=== PATIENT | female | born 1975 | race Caucasian/White ===

== ENCOUNTER → 2016-07-06 | Outpatient (CLI) | payer OTHER ==
--- NOTE | 2016-07-06 15:46 | XR ---
EXAMINATION TYPE: 3 views right hand. 3 views lumbar spine. 4 views sacrum and coccyx DATE OF EXAM: 07/06/2016 3:37 PM COMPARISON: NONE HISTORY: 41-year-old female with fall yesterday landing on her back and hitting her right hand. Prior lumbar fusion. Back pain and injury to the tip of the fifth finger. FINDINGS: Right hand: No acute fracture, subluxation, or dislocation. Particular attention to the tip of the fifth finger. Lumbar spine: Postsurgical changes of L4-S1 posterior and interbody fusion with corresponding laminectomies. There is moderate to severe degenerative disc disease at L2-L3 with grade 1, nearly grade 2 retrolisthesis at L2-L3 and grade 1 retrolisthesis above the fusion at L3-L4. There is degenerated levoconvex curvat ure of the lumbar spine. Vertebral body heights are preserved. Orthopedic hardware appears uncomplica arpita. Sacrum coccyx: SI joints appear symmetric and intact. Arcuate lines of the sacrum are smooth and continuous. No angu lated or displaced sacrococcygeal fracture on the lateral view. COMBINED IMPRESSION: 1. Right hand: No acute osseous abnormality seen. 2. Lumbar spine: Degenerated levoconvex curvature. Uncomplicated appearance to the L4-S1 posterior an d interbody fusion with laminectomies. Moderate to severe degenerative disc disease at L2-L3 with gra de 1, nearly grade 2 anterolisthesis here and additional grade 1 retrolisthesis above the fusion at L 3-L4. No vertebral compression collapse. 3. Sacrum and coccyx: No displaced or angulated sacrococcygeal fracture seen.
== END ==
LOC: RADXRMAIN 15:04
PROVIDERS: ATTEND Emergency Medicine
DX: S60.221A Contusion of right hand, initial encounter (principal); S30.0XXA Contusion of lower back and pelvis, initial encounter; S61.216A Laceration without foreign body of right little finger without damage to nail, initial encounter
CPT/HCPCS: 72100; 72220

== ENCOUNTER 2016-07-07 17:54 | Emergency (ER) | payer OTHER ==
[2016-07-07 18:29] VITALS: RESP 18
[2016-07-07] MEDS ORDERED: traMADol 50 MG TAB PO STA (19:09)
[2016-07-07] MEDS ORDERED: ORPHENADRINE 30 MG/ML 2 ML VIAL IVP STA (19:09)
[2016-07-07 19:46] LABS: Basophils # (A) 0.1 k/uL (0-0.2); Basophils % (A) 1 %; CH 31.9; CHCM 34.3; Eosinophils # (A) 0.2 k/uL (0-0.7); Eosinophils % (A) 2 %; HCT 36.1 % (34.0-46.0); HDW 2.62; HGB 12.2 gm/dL (11.4-16.0); Luc # (Auto) 0.41; Luc % (Auto) 4; Lymphocytes # (A) 3.1 k/uL (1.0-4.8); Lymphocytes % (A) 27 %; MCH 31.7 pg (25.0-35.0); MCHC 33.8 g/dL (31.0-37.0); MCV 93.6 fL (80.0-100.0); Mean Platelet Volume 7.9; Monocytes # (A) 0.6 k/uL (0-1.0); Monocytes % (A) 5 %; Neutrophils # (A) 7.4 k/uL (1.3-7.7); Neutrophils % (A) 62 %; RBC 3.85 m/uL (3.80-5.40); RDW 13.7 % (11.5-15.5); WBC 11.8 k/uL (3.8-10.6); WBC (Perox) 12.13
--- NOTE | 2016-07-07 19:46 | ED ---
Back Pain HPI - General Chief Complaint: Back Pain/Injury Stated Complaint: abnormal CT Time Seen by Provider: 07/07/16 18:56 Source: patient, RN notes reviewed, old records reviewed Limitations: no limitations - History of Present Illness Initial Comments: Patient is a 41-year-old female chief complaint of lower back pain after falling on Monday. She was seen by [facility] and had a CAT scan of her lower back today. They reported that she does have some sclerosis of the lower spine likely and a stress nature but can't rule out infectious disorder. Addition financial administrative assistant at the eye chest stated that she needed to come to be reevaluated to make sure that she does not have infection. Patient denies any other new pain. She reports the pain is positional. She states that she's been taking naproxen and a lidocaine patch over her back over does not help with the pain. Denies any fever or chills, nausea or vomiting or abdominal pain. Denies any dysuria or hematuria or vaginal discharge. Patient states that he has no history of IV drug use. Denies saddle anesthesias. Patient denies any recent fever, chills, shortness of breath, chest pain, abdominal pain, nausea vomiting , numbness or tingling, dysuria or hematuria, constipation or diarrhea, headaches or visual changes, or any other current symptoms - Related Data Home Medications Medication Instructions Recorded Confirmed Gabapentin [Neurontin] 300 mg PO TID 07/07/16 07/07/16 HYDROcodone/APAP 7.5-325MG [[place] 1 tab PO BID PRN 07/07/16 07/07/16 7.5-325] Lisdexamfetamine Dimesylate 50 mg PO QAM 07/07/16 07/07/16 [Vyvanse] QUEtiapine [SEROquel] 400 mg PO HS 07/07/16 07/07/16 buPROPion HCL [Wellbutrin SR] 100 mg PO DAILY 07/07/16 07/07/16 buPROPion SR [Wellbutrin Sr] 300 mg PO DAILY 07/07/16 07/07/16 Previous Rx's Medication Instructions Recorded Cyclobenzaprine [Flexeril] 10 mg PO TID #15 tab 07/07/16 HYDROcodone/APAP 5-325MG [[place] 5] 1 each PO Q6HR PRN #12 tab 07/07/16 Nitrofurantoin Monohyd/M-Cryst 100 mg PO Q12HR #14 cap 07/07/16 [Macrobid] Allergies Allergy/AdvReac Type Severity Reaction Status Date / Time amoxicillin Allergy Swelling Verified 07/07/16 18:57 carisoprodol [From Soma] Allergy Swelling Verified 07/07/16 18:57 venlafaxine [From Effexor] Allergy Swelling Verified 07/07/16 18:57 Review of Systems ROS Statement: Those systems with pertinent positive or pertinent negative responses have been documented in the HPI. ROS Other: All systems not noted in ROS Statement are negative. Past Medical History Past Medical History: Hyperlipidemia Additional Past Medical History / Comment(s): chronic back pain History of Any Multi-Drug Resistant Organisms: None Reported Additional Past Surgical History / Comment(s): spinal fusion 2006 Past Psychological History: Depression Smoking Status: Former smoker Past Alcohol Use History: None Reported Past Drug Use History: None Reported General Exam - General Exam Comments Initial Comments: Pleasant 41-year-old female. No distress. Limitations: no limitations General appearance: alert, in no apparent distress Head exam: Present: atraumatic, normocephalic, normal inspection Eye exam: Present: normal appearance, PERRL, EOMI. Absent: scleral icterus, conjunctival injection, periorbital swelling ENT exam: Present: normal exam, mucous membranes moist Neck exam: Present: normal inspection. Absent: tenderness, meningismus, lymphadenopathy Respiratory exam: Present: normal lung sounds bilaterally. Absent: respiratory distress, wheezes, rales, rhonchi, stridor Cardiovascular Exam: Present: regular rate, normal rhythm, normal heart sounds. Absent: systolic murmur, diastolic murmur, rubs, gallop, clicks GI/Abdominal exam: Present: soft, normal bowel sounds. Absent: distended, tenderness, guarding, rebound, rigid Extremities exam: Present: normal inspection, full ROM, normal capillary refill. Absent: tenderness, pedal edema, joint swelling, calf tenderness Back exam: Present: normal inspection, full ROM, tenderness (She has lumbar spinal tenderness.) Neurological exam: Present: alert, oriented X3, CN II-XII intact Psychiatric exam: Present: normal affect, normal mood Skin exam: Present: warm, dry, intact, normal color. Absent: rash Course Vital Signs 07/07/16 18:25 Temperature 98.2 F Pulse Rate 87 Respiratory 18 Rate Blood Pressure 137/86 O2 Sat by Pulse 100 Oximetry Medical Decision Making - Medical Decision Making This is a 41-year-old female chief complaint of lower back pain after a fall. Patient states that she was seen by eye chest and had a CT. They reported they want her to be seen and to follow-up with the emergency department to rule out infection. Patient's lab work obtained. White count is negative. Patient has no fever or chills or signs of infection. Patient's urinalysis does show large white blood cells and large leukocyte Estrace. We will put the patient on Macrobid for UTI. Patient has been advised to follow up back with [facility]. I will write the patient for Ultram for back pain as well as naproxen. Flexeril. Patient understands treatment plan will comply. Return parameters were discussed. - Lab Data Result diagrams: 07/07/16 19:30 07/07/16 19:30 Lab Results 07/07/16 07/07/16 07/07/16 Range/Units 19:30 19:30 19:30 WBC 11.8 H (3.8-10.6) k/uL RBC 3.85 (3.80-5.40) m/uL Hgb 12.2 (11.4-16.0) gm/dL Hct 36.1 (34.0-46.0) % MCV 93.6 (80.0-100.0) fL MCH 31.7 (25.0-35.0) pg MCHC 33.8 (31.0-37.0) g/dL RDW 13.7 (11.5-15.5) % Plt Count 276 (150-450) k/uL Neutrophils % 62 % Lymphocytes % 27 % Monocytes % 5 % Eosinophils % 2 % Basophils % 1 % Neutrophils # 7.4 (1.3-7.7) k/uL Lymphocytes # 3.1 (1.0-4.8) k/uL Monocytes # 0.6 (0-1.0) k/uL Eosinophils # 0.2 (0-0.7) k/uL Basophils # 0.1 (0-0.2) k/uL Sodium 139 (137-145) mmol/L Potassium 4.1 (3.5-5.1) mmol/L Chloride 102 (98-107) mmol/L Carbon Dioxide 25 (22-30) mmol/L Anion Gap 12 mmol/L BUN 13 (7-17) mg/dL Creatinine 0.58 (0.52-1.04) mg/dL Est GFR (MDRD) Af Amer >60 (>60 ml/min/1.73 sqM) Est GFR (MDRD) Non-Af >60 (>60 ml/min/1.73 sqM) Glucose 83 (74-99) mg/dL Calcium 9.4 (8.4-10.2) mg/dL Urine Color Yellow Urine Appearance Cloudy H (Clear) Urine pH 6.0 (5.0-8.0) Ur Specific [place] 1.024 (1.001-1.035) Urine Protein 1+ H (Negative) Urine Glucose (UA) Negative (Negative) Urine Ketones Negative (Negative) Urine Blood Negative (Negative) Urine Nitrite Negative (Negative) Urine Bilirubin Negative (Negative) Urine Urobilinogen <2.0 (<2.0) mg/dL Ur Leukocyte Esterase Large H (Negative) Urine RBC 2 (0-5) /hpf Urine WBC 20 H (0-5) /hpf Ur Squamous Epith Cells 13 H (0-4) /hpf Urine Bacteria Rare H (None) /hpf Urine Mucus Many H (None) /hpf - Radiology Data Radiology results: report reviewed CT of lumbar spine shows spinal stenosis, disc herniation and listhesis described L2/3. Sclerosis is thought to be likely due to stress changes rather than infection. Scoliosis and postop changes. Vertebral bodies show stable height. There is retrolisthesis on the plain film L2/3. So she did this Height loss and vacuum phenomenon. Endplate irregularities likely due to degenerative changes. Uterus is somewhat bulky. There may be underlying fibroid. Evidence of laminectomies at L5. Disposition Clinical Impression: Lower back pain, UTI (urinary tract infection) Disposition: HOME SELF-CARE Condition: Good Instructions: Acute Low Back Pain (ED) Additional Instructions: Patient advised to follow up with [facility] regards to further management of the back pain. Patient can take muscle relaxer and pain medication as needed. Also complete her antibiotic prescription for urinary tract infection. Return to the emergency department if any alarming signs or symptoms occur including loss of bowel or bladder control. Prescriptions: Cyclobenzaprine [Flexeril] 10 mg PO TID #15 tab HYDROcodone/APAP 5-325MG [Ruffin 5] 1 each PO Q6HR PRN #12 tab PRN Reason: Pain Nitrofurantoin Monohyd/M-Cryst [Macrobid] 100 mg PO Q12HR #14 cap Referrals: Nonstaff,Physician [Primary Care Provider] - 1-2 days Carolina Guzman MD [STAFF PHYSICIAN] - 1-2 days Time of Disposition: 20:13
[2016-07-07 19:55] LABS: Appearance,Urine Cloudy (Clear); Bacteria,Urine Rare /hpf; Bilirubin,Urine Negative (Negative); Glucose,Urine (UA) Negative (Negative); Ketones,Urine Negative (Negative); Leukocyte Esterase,Urine Large (Negative); Mucus,Urine Many /hpf; Nitrite,Urine Negative (Negative); Particle Count 17090; Protein,Urine 1+ (Negative); RBC,Urine 2 /hpf (0-5); Specific Gravity,Urine 1.024 (1.001-1.035); Squamous Epithelial Cell,Urine 13 /hpf (0-4); UA Billing (MACRO vs. MICRO) MICRO; Urobilinogen,Urine <2.0 mg/dL (<2.0); WBC,Urine 20 /hpf (0-5)
[2016-07-07 20:05] LABS: Anion Gap 12 mmol/L; Blood Urea Nitrogen 13 mg/dL (7-17); Calcium 9.4 mg/dL (8.4-10.2); Carbon Dioxide 25 mmol/L (22-30); Chloride 102 mmol/L (98-107); Glucose 83 mg/dL (74-99); Non-African American GFR(MDRD) >60 (>60 ml/min/1.73 sqM); Potassium 4.1 mmol/L (3.5-5.1); Sodium 139 mmol/L (137-145)
[2016-07-07 20:32] VITALS: BP 119/63; PULSE 78; TEMP 98.7
== END 2016-07-07 20:31 | disposition home or self-care (01) ==
LOC: EC 17:54
DX: N39.0 Urinary tract infection, site not specified (principal); M48.06 Spinal stenosis, lumbar region; M51.26 Other intervertebral disc displacement, lumbar region; M43.16 Spondylolisthesis, lumbar region; M41.86 Other forms of scoliosis, lumbar region; F32.9 Major depressive disorder, single episode, unspecified; Z87.891 Personal history of nicotine dependence; Z79.899 Other long term (current) drug therapy; Z88.0 Allergy status to penicillin; Z88.8 Allergy status to other drugs, medicaments and biological substances; Z98.1 Arthrodesis status
CPT/HCPCS: 36415; 80048; 85025; 81001; 99284; 96374; J2360

== ENCOUNTER → 2016-07-07 | Outpatient (CLI) | payer OTHER ==
--- NOTE | 2016-07-07 17:15 | CT ---
EXAMINATION TYPE: CT lumbar spine wo con DATE OF EXAM: 07/07/2016 4:56 PM COMPARISON: Plain film 06 Jul 2016 HISTORY: Pain post fall on 07/05/16 CT DLP: 1312.6 mGycm Automated exposure control for dose reduction was used. An unenhanced CT of the lumbar spine was performed. Bone and soft tissue window settings are submitt ed as well as coronal and sagittal reconstructions. FINDINGS: Lumbar vertebral bodies show stable height, there is retrolisthesis as noted on plain film at L2-3, t here is associated loss of disc height and vacuum phenomenon, endplate sclerosis. Endplate irregulari ty likely is due to degenerative change, difficult to exclude infection. Postop changes are noted sta tus post posterior fusion at L4-S1. There is a scoliotic curvature to the spine. Laminectomies are pr esent at L5. Uterus is somewhat bulky, there may be underlying fibroid L1-L2: Broad-based posterior disc bulge causes mild anterior mass effect on the thecal sac. No signif icant foraminal encroachment, only mild central stenosis. L2-L3: There is a posterior disc herniation, vacuum phenomenon extends into the central canal, modera te to severe central stenosis is suspected. Listhesis contributes to cause foraminal encroachment wit h the scoliosis greater on the right than on the left. L3-L4: Central canal stenosis is moderate, posterior broad-based disc bulge causes anterior mass effe ct on the thecal sac, facet arthropathy encroaches on the lateral recesses. Some mild bilateral griffin inal encroachment suspected. L4-L5: Intervertebral spacing material is present. There is loss of disc height. L5-S1: Intervertebral spacing material is present. There is loss of disc height. IMPRESSION: Spinal stenosis, disc herniation and listhesis as described at L2-3. Sclerosis thought likely to be d ue to stress changes rather than infection, correlate. Scoliosis, postop changes and additional findi ngs above.
--- NOTE | 2016-07-07 17:31 | XR ---
AP pelvis HISTORY: Trauma and pain Single frontal view of the pelvis No comparisons Postop changes are noted at the lumbosacral junction. Bone mineralization is maintained. Alignment an d joint spaces are normal. IMPRESSION: No fracture or dislocation
== END | disposition home or self-care (01) ==
LOC: RADCTMAIN 16:27
PROVIDERS: ATTEND Emergency Medicine
DX: S30.0XXD Contusion of lower back and pelvis, subsequent encounter (principal); M48.06 Spinal stenosis, lumbar region; M51.26 Other intervertebral disc displacement, lumbar region; M43.16 Spondylolisthesis, lumbar region; M41.9 Scoliosis, unspecified; Z98.890 Other specified postprocedural states
CPT/HCPCS: 72131; 72170

== ENCOUNTER 2017-05-31 14:47 | Observation (INO) | payer OTHER ==
[2017-05-31] MEDS ORDERED: SODIUM CHLORIDE 0.9% 1,000 ML IV STA (15:05)
--- NOTE | 2017-05-31 15:11 | ED ---
General Adult HPI - General Chief complaint: Overdose Stated complaint: Overdose Time Seen by Provider: 05/31/17 15:00 Source: police, EMS, RN notes reviewed Mode of arrival: EMS Limitations: no limitations - History of Present Illness Initial comments: This is a 42-year-old female presents emergency department stating that she doesn't want to live anymore. Patient states that she took 25 Zanaflex because she's sick of living with pain. Patient denies any other medications he sent denies any illegal drugs patient denies any alcohol. Patient denies a headache patient denies any numbness or weakness. Patient states she does feel extremely tired but aside from that has no complaint. Patient denies chest pain palpitations difficulty breathing or shortness of breath per patient denies abdominal pain patient denies nausea vomiting diarrhea. Patient denies any recent fever chills or cough. - Related Data Home Medications Medication Instructions Recorded Confirmed QUEtiapine [SEROquel] 600 mg PO HS 07/07/16 05/31/17 buPROPion HCL [Wellbutrin SR] 100 mg PO DAILY 07/07/16 05/31/17 buPROPion SR [Wellbutrin Sr] 150 mg PO BID 07/07/16 05/31/17 HYDROcodone/APAP 5-325MG [[place] 5] 1 tab PO Q8H PRN 05/31/17 05/31/17 Lisdexamfetamine Dimesylate 70 mg PO QAM 05/31/17 05/31/17 [Vyvanse] Pantoprazole [Protonix] 40 mg PO BID 05/31/17 05/31/17 Promethazine [Phenergan] 25 mg PO Q12H 05/31/17 05/31/17 tiZANidine [Zanaflex] 4 mg PO Q8HR PRN 05/31/17 05/31/17 Allergies Allergy/AdvReac Type Severity Reaction Status Date / Time amoxicillin Allergy Swelling Verified 07/07/16 18:57 carisoprodol [From Soma] Allergy Swelling Verified 07/07/16 18:57 venlafaxine [From Effexor] Allergy Swelling Verified 07/07/16 18:57 Review of Systems ROS Statement: Those systems with pertinent positive or pertinent negative responses have been documented in the HPI. ROS Other: All systems not noted in ROS Statement are negative. Past Medical History Past Medical History: Hyperlipidemia Additional Past Medical History / Comment(s): chronic back pain History of Any Multi-Drug Resistant Organisms: None Reported Additional Past Surgical History / Comment(s): spinal fusion 2006 Past Psychological History: Depression Smoking Status: Former smoker Past Alcohol Use History: None Reported Past Drug Use History: None Reported General Exam - General Exam Comments Initial Comments: GENERAL: Patient is well-developed and well-nourished. Patient is nontoxic and well- hydrated and is in no acute distress. Patient is lethargic but arousable and able to answer questions accurately ENT: Neck is soft and supple. No significant lymphadenopathy is noted. Oropharynx is clear. Moist mucous membranes. Neck has full range of motion without eliciting any pain. EYES: The sclera were anicteric and conjunctiva were pink and moist. Extraocular movements were intact and pupils were equal round and reactive to light. Eyelids were unremarkable. PULMONARY: Unlabored respirations. Good breath sounds bilaterally. No audible rales rhonchi or wheezing was noted. CARDIOVASCULAR: There is a regular rate and rhythm without any murmurs gallops or rubs. ABDOMEN: Soft and nontender with normal bowel sounds. SKIN: Skin is clear with no lesions or rashes and otherwise unremarkable. NEUROLOGIC: Patient is alert and oriented x3. Cranial nerves II through XII are grossly intact. Motor and sensory are also intact. Normal speech, volume and content. Symmetrical smile. MUSCULOSKELETAL: Normal extremities with adequate strength and full range of motion. LYMPHATICS: No significant lymphadenopathy is noted PSYCHIATRIC: Patient states she is suicidal Limitations: no limitations Course Vital Signs 05/31/17 05/31/17 15:00 15:50 Temperature 97.6 F Pulse Rate 40 L 40 L Respiratory 16 16 Rate Blood Pressure 130/71 O2 Sat by Pulse 99 Oximetry Medical Decision Making - Medical Decision Making EKG shows a marked sinus bradycardia at 43 bpm NC interval is 132 QRS is 86 QT interval 512 QTC is 432. Patient's EKG shows no ST segment elevation or depression no T-wave abnormalities noted. I spoke with Dr. Patel he agreed to admit the patient admitted the patient wrote admitting orders. - Lab Data Result diagrams: 05/31/17 15:00 05/31/17 15:00 Lab Results 05/31/17 05/31/17 05/31/17 Range/Units 15:00 15:00 15:00 WBC 7.0 (3.8-10.6) k/uL RBC 3.73 L (3.80-5.40) m/uL Hgb 11.3 L (11.4-16.0) gm/dL Hct 33.7 L (34.0-46.0) % MCV 90.4 (80.0-100.0) fL MCH 30.3 (25.0-35.0) pg MCHC 33.5 (31.0-37.0) g/dL RDW 13.5 (11.5-15.5) % Plt Count 339 (150-450) k/uL Neutrophils % 70 % Lymphocytes % 21 % Monocytes % 7 % Eosinophils % 0 % Basophils % 0 % Neutrophils # 4.9 (1.3-7.7) k/uL Lymphocytes # 1.5 (1.0-4.8) k/uL Monocytes # 0.5 (0-1.0) k/uL Eosinophils # 0.0 (0-0.7) k/uL Basophils # 0.0 (0-0.2) k/uL Sodium 135 L (137-145) mmol/L Potassium 4.1 (3.5-5.1) mmol/L Chloride 101 (98-107) mmol/L Carbon Dioxide 23 (22-30) mmol/L Anion Gap 11 mmol/L BUN 14 (7-17) mg/dL Creatinine 0.46 L (0.52-1.04) mg/dL Est GFR (CKD-EPI)AfAm >90 (>60 ml/min/1.73 sqM) Est GFR (CKD-EPI)NonAf >90 (>60 ml/min/1.73 sqM) Glucose 94 (74-99) mg/dL Calcium 9.0 (8.4-10.2) mg/dL Magnesium (1.6-2.3) mg/dL Total Bilirubin 0.3 (0.2-1.3) mg/dL AST 90 H (14-36) U/L ALT 99 H (9-52) U/L Alkaline Phosphatase 89 (38-126) U/L Troponin I (0.000-0.034) ng/mL Total Protein 6.7 (6.3-8.2) g/dL Albumin 3.6 (3.5-5.0) g/dL Urine HCG, Qual (Not Detectd) Salicylates <1.0 mg/dL Urine Opiates Screen Not Detected (NotDetected) Ur Oxycodone Screen Not Detected (NotDetected) Urine Methadone Screen Not Detected (NotDetected) Ur Propoxyphene Screen Not Detected (NotDetected) Acetaminophen <10.0 ug/mL Ur Barbiturates Screen Detected H (NotDetected) U Tricyclic Antidepress Not Detected (NotDetected) Ur Phencyclidine Scrn Not Detected (NotDetected) Ur Amphetamines Screen Detected H (NotDetected) U Methamphetamines Scrn Detected H (NotDetected) U Benzodiazepines Scrn Not Detected (NotDetected) Urine Cocaine Screen Not Detected (NotDetected) U Marijuana (THC) Screen Not Detected (NotDetected) Serum Alcohol <10 mg/dL 05/31/17 05/31/17 05/31/17 Range/Units 15:00 15:00 15:00 WBC (3.8-10.6) k/uL RBC (3.80-5.40) m/uL Hgb (11.4-16.0) gm/dL Hct (34.0-46.0) % MCV (80.0-100.0) fL MCH (25.0-35.0) pg MCHC (31.0-37.0) g/dL RDW (11.5-15.5) % Plt Count (150-450) k/uL Neutrophils % % Lymphocytes % % Monocytes % % Eosinophils % % Basophils % % Neutrophils # (1.3-7.7) k/uL Lymphocytes # (1.0-4.8) k/uL Monocytes # (0-1.0) k/uL Eosinophils # (0-0.7) k/uL Basophils # (0-0.2) k/uL Sodium (137-145) mmol/L Potassium (3.5-5.1) mmol/L Chloride (98-107) mmol/L Carbon Dioxide (22-30) mmol/L Anion Gap mmol/L BUN (7-17) mg/dL Creatinine (0.52-1.04) mg/dL Est GFR (CKD-EPI)AfAm (>60 ml/min/1.73 sqM) Est GFR (CKD-EPI)NonAf (>60 ml/min/1.73 sqM) Glucose (74-99) mg/dL Calcium (8.4-10.2) mg/dL Magnesium 1.8 (1.6-2.3) mg/dL Total Bilirubin (0.2-1.3) mg/dL AST (14-36) U/L ALT (9-52) U/L Alkaline Phosphatase (38-126) U/L Troponin I <0.012 (0.000-0.034) ng/mL Total Protein (6.3-8.2) g/dL Albumin (3.5-5.0) g/dL Urine HCG, Qual Not Detected (Not Detectd) Salicylates mg/dL Urine Opiates Screen (NotDetected) Ur Oxycodone Screen (NotDetected) Urine Methadone Screen (NotDetected) Ur Propoxyphene Screen (NotDetected) Acetaminophen ug/mL Ur Barbiturates Screen (NotDetected) U Tricyclic Antidepress (NotDetected) Ur Phencyclidine Scrn (NotDetected) Ur Amphetamines Screen (NotDetected) U Methamphetamines Scrn (NotDetected) U Benzodiazepines Scrn (NotDetected) Urine Cocaine Screen (NotDetected) U Marijuana (THC) Screen (NotDetected) Serum Alcohol mg/dL Disposition Clinical Impression: Overdose, Bradycardia, Methamphetamine abuse Disposition: ADMITTED IP TO THIS [facility] Referrals: Nonstaff,Physician [Primary Care Provider] - 1-2 days Time of Disposition: 16:42
[2017-05-31 15:33] LABS: Basophils % (A) 0 %; Eosinophils % (A) 0 %; HCT 33.7 % (34.0-46.0); HGB 11.3 gm/dL (11.4-16.0); Lymphocytes # (A) 1.5 k/uL (1.0-4.8); Lymphocytes % (A) 21 %; MCH 30.3 pg (25.0-35.0); MCHC 33.5 g/dL (31.0-37.0); MCV 90.4 fL (80.0-100.0); Mean Platelet Volume 8.6; Monocytes # (A) 0.5 k/uL (0-1.0); Monocytes % (A) 7 %; Neutrophils # (A) 4.9 k/uL (1.3-7.7); Neutrophils % (A) 70 %; Platelet Count 339 k/uL (150-450); RBC 3.73 m/uL (3.80-5.40); RDW 13.5 % (11.5-15.5)
[2017-05-31 15:45] LABS: ALT 99 U/L (9-52); AST 90 U/L (14-36); Acetaminophen <10.0 ug/mL; Albumin 3.6 g/dL (3.5-5.0); Alcohol <10 mg/dL; Alkaline Phosphatase 89 U/L (38-126); Anion Gap 11 mmol/L; Blood Urea Nitrogen 14 mg/dL (7-17); Carbon Dioxide 23 mmol/L (22-30); Chloride 101 mmol/L (98-107); Glucose 94 mg/dL (74-99); Potassium 4.1 mmol/L (3.5-5.1); Salicylate <1.0 mg/dL; Sodium 135 mmol/L (137-145); Total Bilirubin 0.3 mg/dL (0.2-1.3); Total Protein 6.7 g/dL (6.3-8.2)
[2017-05-31 16:05] LABS: Cocaine Screen,Urine Not Detected (NotDetected); Opiate Screen,Urine Not Detected (NotDetected); Phencyclidine Screen,Urine Not Detected (NotDetected); Urn Cannabinoid Scrn Not Detected (NotDetected)
[2017-05-31 16:06] LABS: Amphetamine Screen,Urine Detected (NotDetected); Barbiturate Screen,Urine Detected (NotDetected); Benzodiazepines Screen,Urine Not Detected (NotDetected); Methadone Screen, Urine Not Detected (NotDetected); Oxycodone Screen, Urine Not Detected (NotDetected); Tricyclic Antidepressant,Urine Not Detected (NotDetected)
[2017-05-31] MEDS ORDERED: MAGNESIUM SULFATE-D5W PMX 1 GM in DEXTROSE/WATER 1 100ML.BAG IVPB ONE (16:38)
[2017-05-31] MEDS ORDERED: SODIUM CHLORIDE 0.9% 1,000 ML IV ONE (16:42)
[2017-05-31 17:12] LABS: ALT 95 U/L (9-52); AST 76 U/L (14-36); Albumin 3.4 g/dL (3.5-5.0); Alkaline Phosphatase 87 U/L (38-126); Anion Gap 9 mmol/L; Blood Urea Nitrogen 12 mg/dL (7-17); Calcium 8.7 mg/dL (8.4-10.2); Carbon Dioxide 23 mmol/L (22-30); Chloride 104 mmol/L (98-107); Glucose 96 mg/dL (74-99); Sodium 136 mmol/L (137-145); Total Bilirubin 0.3 mg/dL (0.2-1.3); Total Protein 6.2 g/dL (6.3-8.2)
[2017-05-31 18:11] VITALS: BMI 29.0
--- NOTE | 2017-05-31 18:12 | P.HPIM ---
History of Present Illness H&P Date: 05/31/17 Chief Complaint: Suicidal ideation overdose The patient is a 42-year-old female with a past medical history of depression, anxiety and chronic pain who presents to the ER after being brought in by EMS for intentional drug overdose. Apparently the patient took 20 -25 tablets of Zanaflex at this morning approximately 1 AM. The patient had been increasingly somnolent but then she reports to calling EMS earlier today. When asked if she was trying to hurt herself the patient on repeating "she does not want to be here". She denied any history of previous suicide attempt. She reports increased stressors including job loss and reports that she is close to losing her apartment. She reports previously being on Wellbutrin and Seroquel and Vyvanse at some point. The patient complaints of severe lower back pain that appears to be chronic she has a history of lumbar spinal infusion and complains of severe midline lumbar back pain and also reports she's been seen several times here in the ER, she reports recently having an EGD at [facility] and apparently has a hiatal hernia. In the ER patient had a UDS that was positive for benzodiazepine and methamphetamine, she was noted to be bradycardic with heart rate in the 40s. Poison control was contacted from the ER Past Medical History Past Medical History: Hyperlipidemia Additional Past Medical History / Comment(s): chronic back pain History of Any Multi-Drug Resistant Organisms: None Reported Additional Past Surgical History / Comment(s): spinal fusion 2005 Past Psychological History: Depression Smoking Status: Former smoker Past Alcohol Use History: None Reported Past Drug Use History: None Reported Medications and Allergies Home Medications Medication Instructions Recorded Confirmed Type QUEtiapine [SEROquel] 600 mg PO HS 07/07/16 05/31/17 History buPROPion HCL [Wellbutrin SR] 100 mg PO DAILY 07/07/16 05/31/17 History buPROPion SR [Wellbutrin Sr] 150 mg PO BID 07/07/16 05/31/17 History HYDROcodone/APAP 5-325MG [[place] 5] 1 tab PO Q8H PRN 05/31/17 05/31/17 History Lisdexamfetamine Dimesylate 70 mg PO QAM 05/31/17 05/31/17 History [Vyvanse] Pantoprazole [Protonix] 40 mg PO BID 05/31/17 05/31/17 History Promethazine [Phenergan] 25 mg PO Q12H 05/31/17 05/31/17 History tiZANidine [Zanaflex] 4 mg PO Q8HR PRN 05/31/17 05/31/17 History Allergies Allergy/AdvReac Type Severity Reaction Status Date / Time amoxicillin Allergy Swelling Verified 07/07/16 18:57 carisoprodol [From Soma] Allergy Swelling Verified 07/07/16 18:57 venlafaxine [From Effexor] Allergy Swelling Verified 07/07/16 18:57 Physical Exam Vitals: Vital Signs Temp Pulse Resp BP Pulse Ox 05/31/17 17:49 97.6 F 52 L 18 132/78 97 05/31/17 16:59 46 L 20 99 05/31/17 15:50 40 L 16 05/31/17 15:00 97.6 F 40 L 16 130/71 99 Intake and Output 05/31/17 05/31/17 05/31/17 06:59 14:59 22:59 Other: Weight 79.379 kg Constitutional: No acute distress, conversant, pleasant Eyes: Anicteric sclerae, moist conjunctiva, no lid-lag, PERRLA ENMT: NC/AT,Oropharynx clear, no erythema, exudates Neck:Supple, FROM, no masses, or JVD, No carotid bruits; No thyromegaly Lungs: Clear to auscultation, Clear to percussion, Normal respiratory effort, no accessory muscle use Cardiovascular: Bradycardic with regular rhythm, No murmurs, gallops, or rubs no peripheral edema Abdominal: Soft Nontender, nom distended, no guarding, no rebound or rigidity, Normoactive bowel sounds No hepatomegaly, No splenomegaly, No palpable mass No abdominal wall hernia noted Skin: Normal temperature, tone, texture, turgor, No induration No subcutaneous nodules, No rash, lesions, No ulcers Extremities:No digital cyanosis No clubbing, Pedal pulses intact and symmetrical Radial pulses intact and symmetrical Normal gait and station, No calf tenderness Psychiatric: Alert and oriented to person, place and time, tearful, emotional, anxious, depressed mood, denies homicidal ideations and any hallucinations Neuro: Muscles Strength 5/5 in all 4 extremities, Sensation to light touch grossly present throughout, Cranial nerves II-XII grossly intact. No focal sensory deficits Results CBC & Chem 7: 06/01/17 06:25 06/01/17 06:25 Labs: Abnormal Lab Results - Last 24 Hours (Table) 05/31/17 05/31/17 05/31/17 Range/Units 15:00 15:00 15:00 RBC 3.73 L (3.80-5.40) m/uL Hgb 11.3 L (11.4-16.0) gm/dL Hct 33.7 L (34.0-46.0) % Sodium 135 L (137-145) mmol/L Creatinine 0.46 L (0.52-1.04) mg/dL AST 90 H (14-36) U/L ALT 99 H (9-52) U/L Total Protein (6.3-8.2) g/dL Albumin (3.5-5.0) g/dL Ur Barbiturates Screen Detected H (NotDetected) Ur Amphetamines Screen Detected H (NotDetected) U Methamphetamines Scrn Detected H (NotDetected) 05/31/17 Range/Units 16:50 RBC (3.80-5.40) m/uL Hgb (11.4-16.0) gm/dL Hct (34.0-46.0) % Sodium 136 L (137-145) mmol/L Creatinine 0.41 L (0.52-1.04) mg/dL AST 76 H (14-36) U/L ALT 95 H (9-52) U/L Total Protein 6.2 L (6.3-8.2) g/dL Albumin 3.4 L (3.5-5.0) g/dL Ur Barbiturates Screen (NotDetected) Ur Amphetamines Screen (NotDetected) U Methamphetamines Scrn (NotDetected) Assessment and Plan (1) Intentional drug overdose Current Visit: Yes Status: Acute Code(s): T50.902A - POISONING BY UNSP DRUG/ MEDS/BIOL SUBST, SELF-HARM, INIT SNOMED Code(s): 70983709 (2) Depression Current Visit: Yes Status: Acute Code(s): F32.9 - MAJOR DEPRESSIVE DISORDER , SINGLE EPISODE, UNSPECIFIED SNOMED Code(s): 04596431 (3) Suicidal ideation Current Visit: Yes Status: Acute Code(s): R45.851 - SUICIDAL IDEATIONS SNOMED Code(s): 9679295 (4) Bradycardia Current Visit: Yes Status: Acute Code(s): R00.1 - BRADYCARDIA, UNSPECIFIED SNOMED Code(s): 58502281 (5) Chronic pain Current Visit: Yes Status: Acute Code(s): G89.29 - OTHER CHRONIC PAIN SNOMED Code(s): 87903178 Plan: The patient is placed on observation for intentional drug overdose anticipated less than 2 midnight stay. Poison control was contacted and recommended maintaining serum potassium level greater than 4 and serum magnesium level greater than 2. We'll continue the patient on a one-to-one project safety manager on 6 selective telemetry unit. continue with IV fluiDS, initial EKG shows a marked sinus bradycardia at 43 bpm OK interval is 132 QRS is 86 QT interval 512 QTC is 432. Patient's EKG shows no ST segment elevation or depression no T-wave abnormalities noted. We'll continue monitor her heart rate which seems to be improving now in the low to mid 50s. We'll consult psychiatry for further recommendations patient will likely need inpatient psychiatric treatment. We' ll continue to follow her clinical course
[2017-05-31] MEDS: PROMETHAZINE 25 MG TAB PO SCH (20:41)
[2017-05-31] MEDS: PANTOPRAZOLE 40 MG TABLET PO SCH (20:41)
[2017-05-31] MEDS: buPROPion SR 150 MG TABLET.ER PO SCH (20:45)
[2017-05-31] MEDS ORDERED: QUEtiapine 200 MG TAB PO SCH (21:00)
[2017-05-31 22:59] LABS: ALT 79 U/L (9-52); AST 53 U/L (14-36); Albumin 3.1 g/dL (3.5-5.0); Alkaline Phosphatase 80 U/L (38-126); Anion Gap 10 mmol/L; Blood Urea Nitrogen 8 mg/dL (7-17); Calcium 8.9 mg/dL (8.4-10.2); Carbon Dioxide 26 mmol/L (22-30); Chloride 108 mmol/L (98-107); Glucose 110 mg/dL (74-99); Magnesium 2.2 mg/dL (1.6-2.3); Potassium 3.3 mmol/L (3.5-5.1); Sodium 144 mmol/L (137-145); Total Bilirubin 0.2 mg/dL (0.2-1.3); Total Protein 5.9 g/dL (6.3-8.2)
[2017-05-31] MEDS ORDERED: Potassium Replacement Protocol 1 EACH MISC MISCELLANE PRN ×2 (23:03→23:59)
[2017-05-31] MEDS ORDERED: POTASSIUM CHLORIDE 10 MEQ in WATER FOR INJECTION 1 100ML.BAG IVPB SCH (23:15)
[2017-06-01] MEDS: POTASSIUM CHLORIDE ER 20 MEQ TAB.ER PO SCH ×2 (00:16→00:58)
[2017-06-01] MEDS: PANTOPRAZOLE 40 MG TABLET PO SCH ×2 (06:34→17:12)
[2017-06-01 06:44] LABS: Basophils % (A) 0 %; Eosinophils # (A) 0.1 k/uL (0-0.7); Eosinophils % (A) 1 %; HCT 34.2 % (34.0-46.0); HGB 11.7 gm/dL (11.4-16.0); Lymphocytes # (A) 1.5 k/uL (1.0-4.8); Lymphocytes % (A) 20 %; MCH 30.7 pg (25.0-35.0); MCHC 34.4 g/dL (31.0-37.0); MCV 89.4 fL (80.0-100.0); Mean Platelet Volume 7.6; Monocytes # (A) 0.5 k/uL (0-1.0); Monocytes % (A) 6 %; Neutrophils # (A) 5.5 k/uL (1.3-7.7); Neutrophils % (A) 71 %; Platelet Count 292 k/uL (150-450); RBC 3.82 m/uL (3.80-5.40); RDW 13.4 % (11.5-15.5); WBC 7.8 k/uL (3.8-10.6)
[2017-06-01 06:54] LABS: Blood Urea Nitrogen 9 mg/dL (7-17); Calcium 8.8 mg/dL (8.4-10.2); Carbon Dioxide 24 mmol/L (22-30); Chloride 109 mmol/L (98-107); Glucose 108 mg/dL (74-99); Potassium 3.9 mmol/L (3.5-5.1)
[2017-06-01 06:57] LABS: Anion Gap 10 mmol/L; Sodium 143 mmol/L (137-145)
[2017-06-01] MEDS ORDERED: Potassium Replacement Protocol 1 EACH MISC MISCELLANE PRN (07:03)
[2017-06-01] MEDS ORDERED: POTASSIUM CHLORIDE ER 20 MEQ TAB.ER PO SCH (08:00)
[2017-06-01] MEDS ORDERED: buPROPion SR 100 MG TABLET.ER PO SCH (09:00)
[2017-06-01] MEDS: PROMETHAZINE 25 MG TAB PO SCH (10:04)
[2017-06-01] MEDS: buPROPion SR 150 MG TABLET.ER PO SCH (10:04)
[2017-06-01] MEDS ORDERED: ACETAMINOPHEN TAB 325 MG TAB PO PRN (10:44)
--- NOTE | 2017-06-01 10:47 | P.PN ---
Subjective Progress Note Date: 06/01/17 Patient not very cooperative with interview today, reports that she wants to " get out of here". Refusing to answer questions but does allow physical examination. Objective - Vital Signs Vital signs: Vital Signs Temp 97.1 F L 06/01/17 08:00 Pulse 98 06/01/17 08:00 Resp 18 06/01/17 08:00 BP 138/66 06/01/17 08:00 Pulse Ox 97 06/01/17 08:00 Intake & Output 05/31/17 06/01/17 06/01/17 18:59 06:59 18:59 Intake Total 1200 120 Balance 1200 120 Weight 79 kg 78 kg Intake: Intake, IV Titration 900 Amount Magnesium Sulfate-D5w Pmx 100 1 gm In Dextrose/Water 1 100ml.bag @ 100 mls/hr IVPB ONCE ONE Rx#: [id number] Sodium Chloride 0.9% 1, 800 000 ml @ 100 mls/hr IV . Q10H ONE Rx#:[id number] Oral 300 120 Other: Voiding Method Toilet # Voids 1 1 # Bowel Movements 0 - Exam Constitutional: No acute distress, conversant, pleasant Eyes: Anicteric sclerae, moist conjunctiva, no lid-lag, PERRLA ENMT: NC/AT,Oropharynx clear, no erythema, exudates Neck:Supple, FROM, no masses, or JVD, No carotid bruits; No thyromegaly Lungs: Clear to auscultation, Clear to percussion, Normal respiratory effort, no accessory muscle use Cardiovascular: Heart regular in rate and rhythm, No murmurs, gallops, or rubs no peripheral edema Abdominal: Soft Nontender, nom distended, no guarding, no rebound or rigidity, Normoactive bowel sounds No hepatomegaly, No splenomegaly, No palpable mass No abdominal wall hernia noted Skin: Normal temperature, tone, texture, turgor, No induration No subcutaneous nodules, No rash, lesions, No ulcers Extremities:No digital cyanosis No clubbing, Pedal pulses intact and symmetrical Radial pulses intact and symmetrical Normal gait and station, No calf tenderness Psychiatric: Alert and oriented to person, place and time, flat affect, withdrawn, uncooperative, depressed mood Neuro: Muscles Strength 5/5 in all 4 extremities, Sensation to light touch grossly present throughout, Cranial nerves II-XII grossly intact. No focal sensory deficits - Labs CBC & Chem 7: 06/01/17 06:25 06/01/17 06:25 Labs: Abnormal Lab Results - Last 24 Hours (Table) 05/31/17 05/31/17 05/31/17 Range/Units 15:00 15:00 15:00 RBC 3.73 L (3.80-5.40) m/uL Hgb 11.3 L (11.4-16.0) gm/dL Hct 33.7 L (34.0-46.0) % Sodium 135 L (137-145) mmol/L Potassium (3.5-5.1) mmol/L Chloride (98-107) mmol/L Creatinine 0.46 L (0.52-1.04) mg/dL Glucose (74-99) mg/dL AST 90 H (14-36) U/L ALT 99 H (9-52) U/L Total Protein (6.3-8.2) g/dL Albumin (3.5-5.0) g/dL Ur Barbiturates Screen Detected H (NotDetected) Ur Amphetamines Screen Detected H (NotDetected) U Methamphetamines Scrn Detected H (NotDetected) 05/31/17 05/31/17 06/01/17 Range/Units 16:50 22:37 06:25 RBC (3.80-5.40) m/uL Hgb (11.4-16.0) gm/dL Hct (34.0-46.0) % Sodium 136 L (137-145) mmol/L Potassium 3.3 L (3.5-5.1) mmol/L Chloride 108 H 109 H (98-107) mmol/L Creatinine 0.41 L 0.40 L 0.50 L (0.52-1.04) mg/dL Glucose 110 H 108 H (74-99) mg/dL AST 76 H 53 H (14-36) U/L ALT 95 H 79 H (9-52) U/L Total Protein 6.2 L 5.9 L (6.3-8.2) g/dL Albumin 3.4 L 3.1 L (3.5-5.0) g/dL Ur Barbiturates Screen (NotDetected) Ur Amphetamines Screen (NotDetected) U Methamphetamines Scrn (NotDetected) Assessment and Plan (1) Intentional drug overdose Narrative/Plan: * Likely suicide attempt with attempted overdose of his Zanaflex * Toxemia has resolved * Patient is awake alert oriented Current Visit: Yes Status: Acute Code(s): T50.902A - POISONING BY UNSP DRUG/ MEDS/BIOL SUBST, SELF-HARM, INIT SNOMED Code(s): 22577193 (2) Suicidal ideation Narrative/Plan: * Awaiting psychiatric evaluation continue 1:1 safety spec Current Visit: Yes Status: Acute Code(s): R45.851 - SUICIDAL IDEATIONS SNOMED Code(s): 8501362 (3) Depression Narrative/Plan: * Awaiting psychiatry consultation * Patient will need inpatient psychiatric treatment Current Visit: Yes Status: Acute Code(s): F32.9 - MAJOR DEPRESSIVE DISORDER , SINGLE EPISODE, UNSPECIFIED SNOMED Code(s): 66487087 (4) Bradycardia Narrative/Plan: * Bradycardia has resolved, * Likely secondary to Zanaflex overdose Current Visit: Yes Status: Resolved Code(s): R00.1 - BRADYCARDIA, UNSPECIFIED SNOMED Code(s): 82037213 (5) Chronic pain Current Visit: Yes Status: Acute Code(s): G89.29 - OTHER CHRONIC PAIN SNOMED Code(s): 72863994 Plan: Patient is medically clear, awaiting psychiatric evaluation possible transfer to the psychiatric unit
--- NOTE | 2017-06-01 13:03 | P.CN ---
Psychiatric Consult - . Consult date: 06/01/17 Consult:: 06/01/17 12:45 Patient was seen for a psych consult regarding her recent overdose. Patient apparently overdosed on Zanaflex and then called EMS and reported about overdosing and came to the hospital. Patient said she has lot of things going on in her life which are very stressful. 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 She is not sure if she still has a job or not. Her mother went to hospital about 2 days ago regarding cancer. She had only one friend who apparently was stalking bad about her behind her back and it was disappointing. She also has several physical problems, her electric service was stopped and now she has to pay extra deposit and make over $400 in payment, which she does not have etc. and started to feel nothing was going right for her and impulsively she overdosed on Zanaflex. She is on multiple medications including Seroquel Wellbutrin Zanaflex Vyvanse hydrocodone etc. etc. patient said she has severe stomachache from acid reflux and that is why she is on hydrocodone. She said she has problem in focusing and that is why she is on Vyvanse. She was never in a psychiatric hospital and gets her medications from her family doctor. Patient did not graduate from high school and got her GED. She was outgoing and had lots of friends and was quite emotional when she was growing up. She got had 2 daughters got a divorce and got the custody of the daughters since he was working. Patient has history of "mood changes", getting hyper talkative etc. and also getting withdrawn feeling depressed not able to sleep etc. She reports of using lithium in the past. She reports of having what she thinks as migraine headaches. This is a white female who was seen in her bed lying down. She is polite and cooperative. She does not show any psychomotor agitation or retardation. Her speech is spontaneous relevant and goal-directed. Her mood varies from euthymic to dysphoric to mildly cheerful. She denies hallucinations and delusional thinking. She denies suicidal and homicidal thoughts. She insisted that she does not need a sitter since she will not do anything to hurt herself. Her insight is fair and judgment is impaired as evidenced by his recent overdose and calling an ambulance. She is well oriented with good memory concentration general knowledge etc. 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 Probable unspecified bipolar 1 disorder. Multiple stressors. History of migraine headache, GERD and ALLERGY to amoxicillin effects or carisoprodol. Suggestions/recommendations: Her sitter can be discontinued since patient denies suicidal intent or plans, promised not to do anything to hurt herself, agreed for medication change and follow-up outpatient treatment at [facility]. Discontinue Vyvanse Wellbutrin narcotics and Zanaflex. Continue Seroquel 6 and a milligram at bedtime and start on Depakote ER 1500 mg at bedtime for mood stabilization. A visit by the clinical social worker for [facility] follow-up and help with her social/ financial situation is important.
--- NOTE | 2017-06-01 14:53 | P.DS ---
Providers Date of admission: 05/31/17 16:42 Attending physician: Jesse Ohara MD Consults: 05/31/17 18:13 Consult Physician Routine Consulting Provider: Charly Herrera Consult Reason/Comments: SI/Overdose Do you want consulting provider notified?: Yes Primary care physician: Physician Nonstaff - Discharge Diagnosis(es) (1) Intentional drug overdose Current Visit: Yes Status: Acute (2) Suicidal ideation Current Visit: Yes Status: Acute (3) Depression Current Visit: Yes Status: Acute (4) Bradycardia Current Visit: Yes Status: Resolved (5) Chronic pain Current Visit: Yes Status: Acute Hospital Course: The patient is a 42-year-old female that presented to the ED via EMS and was admitted for intentional overdose with Zanaflex and that time it was complaining of suicidal ideation to the ED physician and to myself. Poison control was contacted in the ER. The patient was placed on IV fluids and placed on a one-to-one sitter for her safety. The patient was noted to be initially bradycardic with heart rate in the 40s likely secondary to Zanaflex toxemia which subsequently resolved as the patient's toxemia cleared. Given the patient's psychosocial stressors and complaints of suicidal ideation both to the ED physician and to this underwriter solicitation director, I recommended that the patient be placed in the patient on the psychiatry unit and recommended a psychiatric evaluation the patient was seen by Dr. Vieira and who recommended the patient was safe to be discharged home with follow-up at [facility] and initiation of Depakote for treatment of bipolar 1 disorder. I personally contacted Dr. Vieira at this discussed the patient's case and he recommended for the patient was safe to go home and she was now denying suicidal ideation and that he would not have to forcibly commit her to the psychiatric unit. The patient was subsequently discharged home and told to follow-up with her PCP and to keep her follow-up appointment at [facility] appointment to be made by the social media developer. Discharge process took approximately 35 minutes Plan - Discharge Summary New Discharge Prescriptions: Continue QUEtiapine [SEROquel] 600 mg PO HS Promethazine [Phenergan] 25 mg PO Q12H Pantoprazole [Protonix] 40 mg PO BID Discharge Medication List QUEtiapine [SEROquel] 600 mg PO HS 07/07/16 [History] Pantoprazole [Protonix] 40 mg PO BID 05/31/17 [History] Promethazine [Phenergan] 25 mg PO Q12H 05/31/17 [History] Follow up Appointment(s)/Referral(s): Nonstaff,Physician [Primary Care Provider] - 1-2 days Discharge Disposition: HOME SELF-CARE
[2017-06-01 15:54] VITALS: BP 141/83; PULSE 72; RESP 14; TEMP 97.9
[2017-06-01] MEDS ORDERED: DIVALPROEX ER 500 MG TAB.ER.24H PO SCH (21:00)
== END 2017-06-01 18:06 | disposition home or self-care (01) ==
LOC: EC 14:47 → 6SEL 16:42 → INTOOBSV 16:42 → 6SEL 17:34 → UNDODISIN 06-01 18:06
PROVIDERS: ADMIT Family Medicine; ATTEND Family Medicine
DX: T42.8X1A Poisoning by antiparkinsonism drugs and other central muscle-tone depressants, accidental (unintentional), initial encounter (principal); R45.851 Suicidal ideations; F31.9 Bipolar disorder, unspecified; R00.1 Bradycardia, unspecified; F41.9 Anxiety disorder, unspecified; G89.29 Other chronic pain; M54.5 Low back pain; K21.9 Gastro-esophageal reflux disease without esophagitis; G43.909 Migraine, unspecified, not intractable, without status migrainosus; F13.90 Sedative, hypnotic, or anxiolytic use, unspecified, uncomplicated; K44.9 Diaphragmatic hernia without obstruction or gangrene; E78.5 Hyperlipidemia, unspecified; Z98.1 Arthrodesis status; Z79.899 Other long term (current) drug therapy; Z88.8 Allergy status to other drugs, medicaments and biological substances; Z88.0 Allergy status to penicillin; Z87.891 Personal history of nicotine dependence
CPT/HCPCS: 99285 ×2; 96365 ×2; 96361 ×4; 36415; 93005; 80053; 80048; 83735; 84484; 85025 ×2; 81025; 80306; 83520 ×2; 80320; G0378 ×2; S0106 ×3; J3475; J3480

== ENCOUNTER → 2017-10-27 | Outpatient (CLI) | payer OTHER ==
--- NOTE | 2017-10-27 10:07 | XR ---
EXAMINATION TYPE: XR lumbar spine 2 or 3V DATE OF EXAM: 10/27/2017 CLINICAL HISTORY: pain TECHNIQUE: Three views of the lumbar spine are submitted. COMPARISON: None. FINDINGS: There is curvature convex to the left. There is a grade 1 retrolisthesis of L2 on L3 measuring 7 mm a s well as retrolisthesis of L3 on L4 measuring 3 mm. Severe degenerative disc space narrowing at each of these levels. No compression fracture seen. Postoperative changes of lumbar laminectomy and fusio n at L4-5 and L5-S1 with appropriate alignment. IMPRESSION: No acute fracture seen. Degenerative change and retrolisthesis at several levels. ICD 10 NO FRACTURE, INITIAL EVALUATION
== END | disposition home or self-care (01) ==
LOC: RADXRMAIN 09:48
PROVIDERS: ATTEND Emergency Medicine
DX: M47.816 Spondylosis without myelopathy or radiculopathy, lumbar region (principal); M43.16 Spondylolisthesis, lumbar region
CPT/HCPCS: 72100